=== PATIENT | male | born 1960 | race Caucasian/White ===

== ENCOUNTER 2019-10-20 14:36 | Emergency (ER) | payer BC, MEDICARE ==
[~2019-10-20] VITALS: Ht 182.9 cm; Wt 104.5 kg
[2019-10-20 14:46] VITALS: BP 150/88
[2019-10-20] MEDS ORDERED: AMOX500C2 PO (14:51)
== END 2019-10-20 15:05 | disposition home or self-care (01) ==
LOC: ER 14:36
DX: H66.92 Otitis media, unspecified, left ear (principal); H92.01 Otalgia, right ear; E11.9 Type 2 diabetes mellitus without complications; Z88.5 Allergy status to narcotic agent; Z79.899 Other long term (current) drug therapy
CPT/HCPCS: 99283